=== PATIENT | female | born 1995 | race Caucasian/White ===

== ENCOUNTER 2020-07-15 05:34 | Inpatient (IN) | payer OTHER ==
[~2020-07-15] VITALS: Ht 157.5 cm; Wt 71.7 kg
[~2020-07-15 05:34] MED LIST: BACTRIM DS TAB1 EACH PO; BACTROBAN NASAL1 G1; IBUPROFEN600 MG PO; KEFLEX CAP 500500 MG PO; PERIDEX15 ML PO
[2020-07-15 06:25] LABS: HEMOGLOBIN 11.5 gm/dl (12.3-15.3); RED BLOOD COUNT 3.63 M/UL (4.00-5.10); WHITE BLOOD COUNT 8.4 K/UL (4.5-11.0)
[2020-07-15] MEDS ORDERED: VALTREX500 MG PO (09:56)
[2020-07-15] MEDS ORDERED: IBUPROFEN600 MG PO (19:14)
[2020-07-15] MEDS ORDERED: COLACE 100MG C100 MG PO (19:14)
[2020-07-16 07:53] LABS: HEMOGLOBIN 10.4 gm/dl (12.3-15.3)
[2020-07-16 11:12] LABS: HEMOGLOBIN 9.7 gm/dl (12.3-15.3)
[2020-07-16 11:53] LABS: RED BLOOD COUNT 3.04 M/UL (4.00-5.10); WHITE BLOOD COUNT 10.9 K/UL (4.5-11.0)
== END 2020-07-17 12:51 | disposition home or self-care (01) | DRG 807 ==
LOC: OB 05:34
PROVIDERS: ADMIT Obstetrics & Gynecology
PROC: 10907ZC Drainage of Amniotic Fluid, Therapeutic from Products of Conception, Via Natural or Artificial Opening (ICD-10-PCS; principal; 2020-07-15)
PROC: 10E0XZZ Delivery of Products of Conception, External Approach (ICD-10-PCS; 2020-07-15)
PROC: 4A1HX4Z Monitoring of Products of Conception, Cardiac Electrical Activity, External Approach (ICD-10-PCS; 2020-07-15)
DX: O98.52 Other viral diseases complicating childbirth (principal); Z37.0 Single live birth; B00.9 Herpesviral infection, unspecified; Z3A.39 39 weeks gestation of pregnancy; O99.02 Anemia complicating childbirth; D64.9 Anemia, unspecified; Z20.828 Contact with and (suspected) exposure to other viral communicable diseases
CPT/HCPCS: 36415; 81001; 82800; 85014; 85018; 85025; J1956; J2270; J2590; J7120

== ENCOUNTER 2020-07-21 10:37 | Emergency (ER) | payer OTHER ==
[~2020-07-21 10:37] MED LIST changes: +COLACE 100MG C100 MG PO; +VALTREX500 MG PO
[2020-07-21 12:38] LABS: HEMOGLOBIN 10.6 gm/dl (12.3-15.3); RED BLOOD COUNT 3.38 M/UL (4.00-5.10); WHITE BLOOD COUNT 10.3 K/UL (4.5-11.0)
[2020-07-21 13:01] LABS: BUN/CREATININE RATIO 21 (0-10)
[2020-07-21] MEDS ORDERED: TRANDATE 100 M100 MG PO (16:22)
== END 2020-07-21 15:30 | disposition home or self-care (01) ==
LOC: ER1 10:37
PROVIDERS: Emergency Medicine
DX: O90.89 Other complications of the puerperium, not elsewhere classified (principal); R10.30 Lower abdominal pain, unspecified; O14.95 Unspecified pre-eclampsia, complicating the puerperium; O99.335 Smoking (tobacco) complicating the puerperium; F17.210 Nicotine dependence, cigarettes, uncomplicated
CPT/HCPCS: 80053; 81001; 83615; 83690; 83735; 84550; 85025; 99284; Q9967

== ENCOUNTER 2021-02-24 11:33 | Emergency (ER) | payer OTHER ==
[~2021-02-24 11:33] MED LIST changes: +TRANDATE 100 M100 MG PO
== END 2021-02-24 13:10 | disposition home or self-care (01) ==
LOC: ER1 11:33
DX: U07.1 COVID-19 (principal)
CPT/HCPCS: 87081; 87880; 99283; U0002